=== PATIENT | female | born 1980 | race Caucasian/White ===

== ENCOUNTER 2018-01-12 18:19 | Emergency (ER) | payer OTHER ==
--- NOTE | 2018-01-12 18:46 | PDOC ---
History of Present Illness - General Stated Complaint: RASH Time Seen by Provider: 01/12/18 18:36 History Source: Patient Exam Limitations: No Limitations - History of Present Illness Initial Comments: 01/12/18 19:14 This 37 yr old with rash c/o scratching for the past few days Her daughter has the same complaints. Pt is seen by DIRECTOR NON PROFIT in triage and found to be suspcious for scabies. Pt treated and d/c'd from here Past History - Past Medical History Allergies/Adverse Reactions: Allergies Allergy/AdvReac Type Severity Reaction Status Date / Time zolpidem tartrate Allergy Severe Rash Verified 01/12/18 18:41 [From Ambien] Home Medications: Ambulatory Orders Permethrin 5% Topical Cream [Elimite -] 1 applic TP ONCE #1 tube 01/12/18 Asthma: No Cancer: No Cardiac Disorders: No Diabetes: No HTN: No Seizures: No Thyroid Disease: No - Reproductive History (#): 1 Para: 0 Cervical CA: No Dysfunctional Uterine Bleeding: No Ectopic : No Endometrial CA: No Polycystic Ovaries: No Therapeutic (s) & number: No Tubal Ligation: No Spontaneous : 0 - Suicide/Smoking/Psychosocial Hx Smoking Status: No Smoking History: Never smoked Have you smoked in the past 12 months: Yes Number of Cigarettes Smoked Daily: 5 Hx Alcohol Use: No Drug/Substance Use Hx: No Hx Substance Use Treatment: No Review of Systems - Review of Systems Able to Perform ROS?: Yes All Other Systems: Reviewed and Negative *Physical Exam - Physical Exam General Appearance: Yes: Appropriately Dressed HEENT: positive: Normal Voice Respiratory/Chest: positive: Lungs Clear Extremity: positive: Normal Inspection Integumentary: positive: Dry, Warm, Rash Neurologic: positive: Alert *DC/Admit/Observation/Transfer Diagnosis at time of Disposition: Scabies infestation - Discharge Dispostion Disposition: HOME Condition at time of disposition: Stable Admit: No - Prescriptions Prescriptions: Permethrin 5% Topical Cream [Elimite -] 1 applic TP ONCE #1 tube - Referrals Referrals: Aleksandr Callahan [Non Staff, Medical] - - Patient Instructions Printed Discharge Instructions: DI for Scabies Additional Instructions: Discharge instructions 1. use the lotion as directed, use it one day and put in each fold, and leave on 8 hours. Wash yourself and bedding immediately after 8 hours. 2. Reapply in 7 days 3. Follow up with Dr. Callahan - Post Discharge Activity
[2018-01-12 19:01] VITALS: BP 137/96; PULSE 75; TEMP 98.3; BMI 37.0
== END 2018-01-12 19:07 | disposition home or self-care (01) ==
LOC: JERFT 18:19
DX: B86 Scabies (principal)
CPT/HCPCS: 99281-25

== ENCOUNTER 2019-06-12 21:36 | Emergency (ER) | payer OTHER ==
[2019-06-12 22:04] VITALS: BP 132/67; PULSE 71; TEMP 97.9; BMI 38.2
== END 2019-06-13 00:30 | disposition left against medical advice (07) ==
LOC: JER 21:36
DX: Z53.21 Procedure and treatment not carried out due to patient leaving prior to being seen by health care provider (principal)
CPT/HCPCS: 99281-25

== ENCOUNTER 2019-06-24 11:46 | Emergency (ER) | payer OTHER ==
[2019-06-24 11:53] VITALS: BP 128/69; PULSE 67; TEMP 98.6; BMI 37.0
[2019-06-24 12:38] LABS: HYALINE CASTS 5 /lpf (0-8); URINE APPEARANCE CLEAR; URINE BACTERIA 4.6 /hpf (NEGATIVE); URINE BILIRUBIN NEGATIVE (NEGATIVE); URINE COLOR YELLOW; URINE GLUCOSE (UA) NEGATIVE (NEGATIVE); URINE KETONE NEGATIVE (NEGATIVE); URINE LEUK ESTERASE NEGATIVE (NEGATIVE); URINE NITRITE NEGATIVE (NEGATIVE); URINE PROTEIN NEGATIVE (NEGATIVE); URINE RBC 3 /hpf (0-4); URINE UROBILINOGEN 0.2 mg/dL (0.2-1.0); URINE WBC 0 /hpf (0-5)
--- NOTE | 2019-06-24 13:01 | PDOC ---
History of Present Illness - General Chief Complaint: Pain Stated Complaint: ABD PAIN Time Seen by Provider: 06/24/19 12:10 History Source: Patient Exam Limitations: No Limitations - History of Present Illness Initial Comments: 06/24/19 12:57 39 yo F w/ no sig PMhx comes in c/o 1 day of vaginal spotting with diffuse lower abdominal cramping. LMP May 20, she is usually regular, unsure if she is , (+)sexually active, does not use protection at all times, no vaginal discharge, no burning/pain on urination, no change in appetite, no known sick contacts, no recent travel, no fever/chillls, no NVD. Pt requesting a blood test, says that she has had a negative test in the past, with an ectopic . 06/24/19 12:58 06/24/19 13:01 Past History - Past Medical History Allergies/Adverse Reactions: Allergies Allergy/AdvReac Type Severity Reaction Status Date / Time zolpidem tartrate Allergy Severe Rash Verified 06/24/19 11:50 [From Vinayien] Home Medications: Ambulatory Orders Permethrin 5% Topical Cream [Elimite -] 1 applic TP ONCE #1 tube 01/12/18 Asthma: No Cancer: No Cardiac Disorders: No COPD: No DVT: No Diabetes: No HTN: No Seizures: No Thyroid Disease: No - Reproductive History Is Patient Now?: No (#): 1 Para: 0 Cervical CA: No Dysfunctional Uterine Bleeding: No Ectopic : No Endometrial CA: No Polycystic Ovaries: No Therapeutic (s) & number: No Tubal Ligation: No Spontaneous : 0 - Immunization History Immunization Up to Date: Yes - Suicide/Smoking/Psychosocial Hx Smoking Status: No Smoking History: Never smoked Have you smoked in the past 12 months: Yes Number of Cigarettes Smoked Daily: 5 Hx Alcohol Use: No Drug/Substance Use Hx: No Substance Use Type: None Hx Substance Use Treatment: No Review of Systems - Review of Systems Able to Perform ROS?: Yes Constitutional: No: Chills, Fever, Malaise, Night Sweats HEENTM: No: Eye Pain, Recent change in vision, Throat Pain Respiratory: No: Cough, Shortness of Breath Cardiac (ROS): No: Chest Pain, Palpitations, Chest Tightness ABD/GI: Yes: Abdominal cramping. No: Diarrhea, Nausea, Vomiting : No: Dysuria, Hematuria Musculoskeletal: No: Back Pain Integumentary: No: Rash Neurological: No: Headache, Numbness, Dizziness Psychiatric: No: Change in Appetite Endocrine: No: Unexplained Weight Loss *Physical Exam - Vital Signs Last Vital Signs Temp Pulse Resp BP Pulse Ox 98.6 F 67 18 128/69 100 06/24/19 11:48 06/24/19 11:48 06/24/19 11:48 06/24/19 11:48 06/24/19 11:48 - Physical Exam General Appearance: Yes: Nourished. No: Apparent Distress HEENT: positive: SULEIMAN, Normal ENT Inspection, Normal Voice. negative: Pale Conjunctivae, Scleral Icterus (R), Scleral Icterus (L) Neck: positive: Supple. negative: Decreased range of motion, Tender midline Respiratory/Chest: positive: Lungs Clear, Normal Breath Sounds. negative: Respiratory Distress, Accessory Muscle Use Cardiovascular: positive: Regular Rhythm, Regular Rate Female Pelvic Exam: positive: cervical os closed, normal adnexa, discharge ( mild whitish), uterus (non tender). negative: CMT, adnexal tenderness, vaginal bleeding Gastrointestinal/Abdominal: positive: Normal Bowel Sounds, Soft. negative: Tender Musculoskeletal: positive: Normal Inspection. negative: CVA Tenderness, Decreased Range of Motion Extremity: positive: Normal Capillary Refill, Normal Inspection, Normal Range of Motion. negative: Tender, Pedal Edema Integumentary: positive: Normal Color, Dry. negative: Jaundice, Rash Neurologic: positive: Fully Oriented, Alert, Normal Mood/Affect ED Treatment Course - ADDITIONAL ORDERS Additional order review: Laboratory Results 06/24/19 06/24/19 12:30 12:30 Urine Color Yellow Urine Appearance Clear Urine pH 5.0 D Ur Specific [place] 1.023 Urine Protein Negative Urine Glucose (UA) Negative Urine Ketones Negative Urine Blood 1+ H Urine Nitrite Negative Urine Bilirubin Negative Urine Urobilinogen 0.2 Ur Leukocyte Esterase Negative Urine WBC (Auto) 0 Urine RBC (Auto) 3 Urine Casts (Auto) 5 U Epithel Cells (Auto) 3.0 Urine Bacteria (Auto) 4.6 Urine HCG, Qual Negative Medical Decision Making - Medical Decision Making 06/24/19 13:00 39 yo F w/ vaginal spotting. Menstruation is late. Pt is requesting a blood test. Pelvic exam unremarkable, no bleeding noted. Abdomen soft, NT WIll check UA, UCG. If UCG negative, will check a blood beta HCG. 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 Return for worsening/concerning symptoms Pt verbalizes understanding and agrees with plan *DC/Admit/Observation/Transfer Diagnosis at time of Disposition: Irregular menstrual bleeding - Discharge Dispostion Disposition: HOME Condition at time of disposition: Stable - Referrals - Patient Instructions Additional Instructions: Return for worsening/concerning symptoms. Your test is negative. Please make sure that you follow up with your OBGYN. - Post Discharge Activity
--- NOTE | 2019-06-24 16:02 | PDOC ---
*Physical Exam - Vital Signs Last Vital Signs Temp Pulse Resp BP Pulse Ox 98.6 F 67 18 128/69 100 06/24/19 11:48 06/24/19 11:48 06/24/19 11:48 06/24/19 11:48 06/24/19 11:48 ED Treatment Course - ADDITIONAL ORDERS Additional order review: Laboratory Results 06/24/19 06/24/19 06/24/19 14:00 12:30 12:30 Beta HCG, Quant < 1.0 Urine Color Yellow Urine Appearance Clear Urine pH 5.0 D Ur Specific [place] 1.023 Urine Protein Negative Urine Glucose (UA) Negative Urine Ketones Negative Urine Blood 1+ H Urine Nitrite Negative Urine Bilirubin Negative Urine Urobilinogen 0.2 Ur Leukocyte Esterase Negative Urine WBC (Auto) 0 Urine RBC (Auto) 3 Urine Casts (Auto) 5 U Epithel Cells (Auto) 3.0 Urine Bacteria (Auto) 4.6 Urine HCG, Qual Negative Medical Decision Making - Medical Decision Making 06/24/19 16:02 The patient was seen and evaluated in conjunction with GALI Rodrigez under my direct supervision, ancillary studies were reviewed. I independently interviewed and evaluated the patient and I agree with the plan as outlined by GALI Rodrigez. Pt left ED without appropriate discharge because she had to leave. Pt was only waiting on a beta hcg result for discharge. Pt's beta hcg is negative, PT identified herself on the phone with her full name and date of and with the information that she was waiting on a test for final discharge. Pt was appreciative of the information and call was ended. *DC/Admit/Observation/Transfer Diagnosis at time of Disposition: Irregular menstrual bleeding - Discharge Dispostion Disposition: HOME Condition at time of disposition: Stable - Referrals - Patient Instructions Additional Instructions: Return for worsening/concerning symptoms. Your test is negative. Please make sure that you follow up with your OBGYN. - Post Discharge Activity
== END 2019-06-24 16:31 | disposition home or self-care (01) ==
LOC: JER 11:46
DX: N92.5 Other specified irregular menstruation (principal); Z32.02 Encounter for pregnancy test, result negative
CPT/HCPCS: 36415; 81003; 84702; 84703; 87086; 87491; 87591; 99283-25

== ENCOUNTER 2020-02-11 10:18 | Emergency (ER) | payer OTHER ==
[2020-02-11 10:28] VITALS: BP 115/96; PULSE 82; TEMP 101.2
[2020-02-11] MEDS ORDERED: ACETAMINOPHEN 325 MG TABLET (FP) PO ONE (10:30)
== END 2020-02-11 10:35 | disposition home or self-care (01) ==
LOC: MERGE 10:18 → JER 10:18
DX: O26.891 Other specified pregnancy related conditions, first trimester (principal); R50.9 Fever, unspecified; R51 Headache; M79.10 Myalgia, unspecified site; Z3A.01 Less than 8 weeks gestation of pregnancy
CPT/HCPCS: 99282-25

== ENCOUNTER 2020-09-16 04:40 | Day surgery (SDC) | payer OTHER ==
[2020-09-13 10:23] VITALS: BMI 36.3
[2020-09-16] MEDS ORDERED: MIDAZOLAM HCL 2 MG/2 ML SINGLE DOSE VIAL ONE ×2 (18:30)
[2020-09-16 19:11] VITALS: TEMP 97.7
[2020-09-16 19:59] VITALS: BP 113/74; PULSE 61
== END 2020-09-16 19:50 | disposition home or self-care (01) ==
LOC: JASU-SURG 04:40 → MERGE 04:40 → JASU-SURG 19:50
PROVIDERS: ATTEND Urology
PROC: 0TF4XZZ Fragmentation in Left Kidney Pelvis, External Approach (ICD-10-PCS; principal; 2020-09-16 15:30)
DX: N20.0 Calculus of kidney (principal)
CPT/HCPCS: 81025

== ENCOUNTER 2020-10-29 10:09 | Emergency (ER) | payer OTHER ==
[2020-10-29 10:23] VITALS: PULSE 76; BMI 37.8
[2020-10-29 12:18] LABS: BASO % 0.6 % (0-2.0); EOS % 0.8 % (0-4.5); HEMATOCRIT 38.8 % (32.4-45.2); HEMOGLOBIN 13.2 GM/dL (10.7-15.3); LYMPH % 24.7 % (8-40); MCH 32.1 pg (25.7-33.7); MCHC 33.9 g/dl (32.0-36.0); MEAN CELL VOLUME 94.8 fl (80-96); MEAN PLT VOLUME 7.8 fl (7.5-11.1); MONO % 9.1 % (3.8-10.2); NEUT % 64.8 % (42.8-82.8); PLATELET COUNT 319 K/MM3 (134-434); RDW 12.5 % (11.6-15.6); WHITE BLOOD COUNT 10.6 K/mm3 (4.0-10.0)
[2020-10-29 12:34] LABS: POTASSIUM 4.4 mmol/L (3.5-5.1)
[2020-10-29 12:36] LABS: ALBUMIN 3.9 g/dl (3.4-5.0); BLOOD UREA NITROGEN 9.3 mg/dL (7-18)
[2020-10-29 12:39] LABS: CREATININE 0.7 mg/dL (0.55-1.3)
[2020-10-29 12:41] LABS: BILIRUBIN,TOTAL 0.6 mg/dL (0.2-1); TOT PROT 7.7 g/dl (6.4-8.2)
[2020-10-29] MEDS ORDERED: SODIUM CHLORIDE 0.9% 500 ML INFUS.BAG IV ONE (12:51)
[2020-10-29 13:59] VITALS: BP 120/72; TEMP 98.1
== END 2020-10-29 13:59 | disposition home or self-care (01) ==
LOC: JER 10:09
DX: B34.9 Viral infection, unspecified (principal)
CPT/HCPCS: 36415; 80053; 84703; 85025; 87804; 99284-25; C9803; U0003

== ENCOUNTER 2021-01-06 04:31 | Day surgery (SDC) | payer OTHER ==
[2021-01-20 12:22] VITALS: BMI 36.5
[2021-01-20] MEDS ORDERED: ONDANSETRON 4 MG/2 ML VIAL IVPUSH PRN (15:47)
[2021-01-20] MEDS ORDERED: oxyCODONE HCL 5 MG TABLET PO PRN (15:47)
[2021-01-20] MEDS ORDERED: LACTATED RINGERS SOLUTION 1,000 ML IV SCH (16:00)
[2021-01-20 17:00] VITALS: BP 108/67; PULSE 69; TEMP 98
== END 2021-01-20 17:10 | disposition home or self-care (01) ==
LOC: JASU-SURG 04:31
PROVIDERS: ATTEND Urology
DX: Z53.8 Procedure and treatment not carried out for other reasons (principal)
CPT/HCPCS: 81025

== ENCOUNTER → 2021-01-20 | Day surgery (SDC) | payer OTHER ==
[2021-01-17 14:27] VITALS: BMI 36.1
[~2021-01-20] MED LIST: KETOROLAC TROMETHAMINE 30 MG/1 ML VIAL ONE; MIDAZOLAM HCL 2 MG/2 ML SINGLE DOSE VIAL ONE; PROPOFOL 20 ML ONE
== END | disposition home or self-care (01) ==
LOC: JASU-SURG 05:33
PROVIDERS: ATTEND Urology
PROC: 0TF3XZZ Fragmentation in Right Kidney Pelvis, External Approach (ICD-10-PCS; principal; 2021-01-20)
DX: N20.0 Calculus of kidney (principal)

== ENCOUNTER 2021-03-16 20:21 | Inpatient (IN) | payer OTHER ==
[2021-03-16] MEDS ORDERED: morphine CARPU-JECT 2 MG/1 ML DISP.SYRIN IVPUSH ONE (21:00)
[2021-03-16 21:34] LABS: BASO % 0.6 % (0-2.0); EOS % 1.4 % (0-4.5); HEMATOCRIT 26.2 % (32.4-45.2); HEMOGLOBIN 8.9 GM/dL (10.7-15.3); LYMPH % 15.4 % (8-40); MCH 33.2 pg (25.7-33.7); MCHC 33.8 g/dl (32.0-36.0); MEAN CELL VOLUME 98.5 fl (80-96); MEAN PLT VOLUME 6.8 fl (7.5-11.1); MONO % 6.6 % (3.8-10.2); PH,URINE 5.5 (5.0-8.0); PLATELET COUNT 675 K/MM3 (134-434); RBC 2.66 M/mm3 (3.60-5.2); RDW 16.1 % (11.6-15.6); URINE APPEARANCE CLEAR; URINE BILIRUBIN NEGATIVE (NEGATIVE); URINE COLOR YELLOW; URINE GLUCOSE (UA) NEGATIVE (NEGATIVE); URINE KETONE NEGATIVE (NEGATIVE); URINE LEUK ESTERASE NEGATIVE (NEGATIVE); URINE NITRITE NEGATIVE (NEGATIVE); URINE PROTEIN NEGATIVE (NEGATIVE); URINE UROBILINOGEN 0.2 mg/dL (0.2-1.0); WHITE BLOOD COUNT 14.1 K/mm3 (4.0-10.0)
[2021-03-16 22:02] LABS: ALBUMIN 3.6 g/dl (3.4-5.0); BLOOD UREA NITROGEN 4.4 mg/dL (7-18); CALCIUM 8.5 mg/dL (8.5-10.1)
[2021-03-16 22:06] LABS: CREATININE 0.4 mg/dL (0.55-1.3)
[2021-03-16 22:08] LABS: ANISOCYTOSIS 1+; BILIRUBIN,TOTAL 0.7 mg/dL (0.2-1); PLATELET ESTIMATE INCREASED; TOT PROT 7.4 g/dl (6.4-8.2)
[2021-03-16] MEDS ORDERED: morphine CARPU-JECT 4 MG/1 ML DISP.SYRIN IVPUSH ONE (23:57)
[2021-03-17 07:02] LABS: BASO % 0.2 % (0-2.0); HEMATOCRIT 21.8 % (32.4-45.2); HEMOGLOBIN 7.6 GM/dL (10.7-15.3); LYMPH % 19.3 % (8-40); MCH 34.3 pg (25.7-33.7); MCHC 34.8 g/dl (32.0-36.0); MEAN CELL VOLUME 98.6 fl (80-96); MEAN PLT VOLUME 6.6 fl (7.5-11.1); MONO % 9.9 % (3.8-10.2); NEUT % 67.6 % (42.8-82.8); PLATELET COUNT 519 K/MM3 (134-434); RBC 2.21 M/mm3 (3.60-5.2); RDW 16.1 % (11.6-15.6); WHITE BLOOD COUNT 10.9 K/mm3 (4.0-10.0)
[2021-03-17 07:55] LABS: BLOOD UREA NITROGEN 6.8 mg/dL (7-18); MAGNESIUM 2.1 mg/dL (1.8-2.4)
[2021-03-17 07:59] LABS: CREATININE 0.4 mg/dL (0.55-1.3)
[2021-03-17 08:00] LABS: BILIRUBIN,TOTAL 0.7 mg/dL (0.2-1)
[2021-03-17 08:02] LABS: TOT PROT 5.6 g/dl (6.4-8.2)
[2021-03-17 08:32] LABS: ALBUMIN 2.8 g/dl (3.4-5.0)
[2021-03-17] MEDS: DOCUSATE SODIUM 100 MG CAPSULE (FP) PO SCH ×3 (09:49→21:18)
[2021-03-17] MEDS: oxyCODONE HCL 5 MG TABLET PO PRN ×3 (10:15→23:04)
[2021-03-17 11:36] VITALS: BMI 35.5
[2021-03-17 13:06] LABS: METHADONE, UR NEGATIVE ng/ml (CUTOFF=300); PHENCYCLIDINE,URINE NEGATIVE ng/ml (CUTOFF=25); URINE AMPHETAMINES NEGATIVE ng/ml (CUTOFF=500); URINE BARBITURATES NEGATIVE ng/ml (CUTOFF=200); URINE BENZODIAZEPINES NEGATIVE ng/ml (CUTOFF=200)
[2021-03-17 13:11] LABS: COCAINE, UR POSITIVE ng/ml (CUTOFF=300); OPIATES, URI POSITIVE ng/ml (CUTOFF=300)
[2021-03-17 16:21] LABS: INR 1.09 (0.83-1.09); PROTHROMBIN TIME (PATIENT) 13.2 SEC (9.7-13.0)
[2021-03-17 16:24] LABS: ACTIVATED PTT 25.9 SECONDS (25.2-36.5)
[2021-03-18 07:27] LABS: BASO % 0.2 % (0-2.0); EOS % 3.1 % (0-4.5); HEMOGLOBIN 7.7 GM/dL (10.7-15.3); LYMPH % 26.3 % (8-40); MCH 33.8 pg (25.7-33.7); MCHC 33.4 g/dl (32.0-36.0); MEAN CELL VOLUME 101.3 fl (80-96); MONO % 11.2 % (3.8-10.2); NEUT % 59.2 % (42.8-82.8); PLATELET COUNT 457 K/MM3 (134-434); RBC 2.27 M/mm3 (3.60-5.2); RDW 16.4 % (11.6-15.6); WHITE BLOOD COUNT 7.3 K/mm3 (4.0-10.0)
[2021-03-18 07:53] LABS: ALBUMIN 2.6 g/dl (3.4-5.0); BLOOD UREA NITROGEN 10.7 mg/dL (7-18); CALCIUM 7.7 mg/dL (8.5-10.1); MAGNESIUM 1.9 mg/dL (1.8-2.4)
[2021-03-18 07:56] LABS: CREATININE 0.4 mg/dL (0.55-1.3); PHOSPHOROUS 3.9 mg/dL (2.5-4.9)
[2021-03-18 07:57] LABS: BILIRUBIN,TOTAL 0.6 mg/dL (0.2-1)
[2021-03-18 07:59] LABS: TOT PROT 5.6 g/dl (6.4-8.2)
[2021-03-18] MEDS: oxyCODONE HCL 5 MG TABLET PO PRN (08:33)
[2021-03-18] MEDS: DOCUSATE SODIUM 100 MG CAPSULE (FP) PO SCH (11:23)
[2021-03-18 14:05] VITALS: BP 102/57; PULSE 75; TEMP 98.4
== END 2021-03-18 17:28 | disposition home or self-care (01) | DRG 663 ==
LOC: JER 20:21 → JERBED 03-17 01:34 → J7W 03-17 06:45
PROVIDERS: ADMIT Hospitalist; ATTEND Internal Medicine
DX: D64.9 Anemia, unspecified (principal); F17.210 Nicotine dependence, cigarettes, uncomplicated; R10.9 Unspecified abdominal pain; R58 Hemorrhage, not elsewhere classified; D72.829 Elevated white blood cell count, unspecified; R60.9 Edema, unspecified; F10.10 Alcohol abuse, uncomplicated; F14.10 Cocaine abuse, uncomplicated; E66.9 Obesity, unspecified; Z68.35 Body mass index [BMI] 35.0-35.9, adult; R74.01 Elevation of levels of liver transaminase levels
CPT/HCPCS: 36415; 74177-TC; 80053; 80307; 81003; 82272; 82607; 82728; 82746; 83010; 83540; 83550; 83615; 83735; 84100; 84703; 85025; 85045; 85379; 85384; 85610; 85730; 87040; 93005; 93010; 93970-TC; 99285-25; C9803; Q9967; U0003; U0005

== ENCOUNTER 2021-10-31 16:04 | Emergency (ER) | payer OTHER ==
[2021-10-31 17:04] VITALS: BP 136/67; PULSE 67; TEMP 98.7; BMI 35.2
== END 2021-10-31 17:23 | disposition home or self-care (01) ==
LOC: JERFT 16:04
DX: H60.502 Unspecified acute noninfective otitis externa, left ear (principal)
CPT/HCPCS: 99283-25

== ENCOUNTER 2022-07-08 09:11 | Emergency (ER) | payer OTHER ==
[2022-07-08 09:28] VITALS: BP 118/78; PULSE 62; RESP 18; TEMP 98.8; BMI 36.3
[2022-07-08] MEDS ORDERED: KETOROLAC TROMETHAMINE 30 MG/1 ML VIAL IVPB ONE (09:59)
[2022-07-08] MEDS ORDERED: SODIUM CHLORIDE 0.9% 500 ML INFUS.BAG IV ONE (09:59)
[2022-07-08] MEDS ORDERED: KETOROLAC TROMETHAMINE 30 MG/1 ML VIAL ONE (10:09)
[2022-07-08 10:11] LABS: PH,URINE 5.5 (5.0-8.0); URINE APPEARANCE CLEAR; URINE BILIRUBIN NEGATIVE (NEGATIVE); URINE COLOR YELLOW; URINE GLUCOSE (UA) NEGATIVE (NEGATIVE); URINE KETONE NEGATIVE (NEGATIVE); URINE LEUK ESTERASE NEGATIVE (NEGATIVE); URINE NITRITE NEGATIVE (NEGATIVE); URINE PROTEIN NEGATIVE (NEGATIVE); URINE UROBILINOGEN 0.2 mg/dL (0.2-1.0)
[2022-07-08 10:15] LABS: HCG,QUALITATIVE URINE Negative
[2022-07-08 10:37] LABS: BASO % 0.6 % (0-2.0); EOS % 0.6 % (0-4.5); HEMATOCRIT 37.8 % (32.4-45.2); HEMOGLOBIN 13.1 GM/dL (10.7-15.3); LYMPH % 23.7 % (8-40); MCH 32.4 pg (25.7-33.7); MCHC 34.7 g/dl (32.0-36.0); MEAN CELL VOLUME 93.4 fl (80-96); MEAN PLT VOLUME 7.4 fl (7.5-11.1); MONO % 9.3 % (3.8-10.2); NEUT % 65.8 % (42.8-82.8); PLATELET COUNT 345 10^3/uL (134-434); RBC 4.05 M/mm3 (3.60-5.2); RDW 12.5 % (11.6-15.6); WHITE BLOOD COUNT 10.1 K/mm3 (4.0-10.0)
[2022-07-08 11:04] LABS: CALCIUM 9.4 mg/dL (8.5-10.1)
[2022-07-08 11:05] LABS: ALBUMIN 3.7 g/dl (3.4-5.0); BLOOD UREA NITROGEN 8.8 mg/dL (7-18)
[2022-07-08 11:08] LABS: CREATININE 0.6 mg/dL (0.55-1.3)
[2022-07-08 11:10] LABS: BILIRUBIN,TOTAL 0.7 mg/dL (0.2-1); TOT PROT 7.6 g/dl (6.4-8.2)
== END 2022-07-08 14:54 | disposition left against medical advice (07) ==
LOC: JER 09:11
PROC: 3E0333Z Introduction of Anti-inflammatory into Peripheral Vein, Percutaneous Approach (ICD-10-PCS; principal; 2022-07-08)
DX: R10.9 Unspecified abdominal pain (principal)
CPT/HCPCS: 36415; 74176-TC; 80053; 81003; 84703; 85025; 87086; 99284-25

== ENCOUNTER 2022-10-18 01:43 | Emergency (ER) | payer OTHER ==
[2022-10-18 01:59] VITALS: BP 143/90; PULSE 81; RESP 18; TEMP 98.1; BMI 36.3
[2022-10-18] MEDS ORDERED: DIPHTH,PERTUSS(ACELL),TET 0.5 ML DISP.SYRIN IM ONE (04:35)
== END 2022-10-18 06:02 | disposition left against medical advice (07) ==
LOC: JER 01:43
PROC: 0HQFXZZ Repair Right Hand Skin, External Approach (ICD-10-PCS; principal; 2022-10-18)
DX: S61.212A Laceration without foreign body of right middle finger without damage to nail, initial encounter (principal); W26.0XXA Contact with knife, initial encounter
CPT/HCPCS: 99282-25

== ENCOUNTER 2022-10-27 12:47 | Emergency (ER) | payer OTHER ==
[2022-10-27 13:22] VITALS: BP 134/71; PULSE 68; RESP 18; TEMP 97.8; BMI 36.5
== END 2022-10-27 14:04 | disposition home or self-care (01) ==
LOC: JERFT 12:47
DX: S61.212A Laceration without foreign body of right middle finger without damage to nail, initial encounter (principal); W26.0XXA Contact with knife, initial encounter; Z48.00 Encounter for change or removal of nonsurgical wound dressing
CPT/HCPCS: 99281-25

== ENCOUNTER 2023-08-08 07:57 | Emergency (ER) | payer OTHER ==
[2023-08-08 08:05] VITALS: BP 117/73; PULSE 67; RESP 18; TEMP 99.3; BMI 36.1
== END 2023-08-08 09:05 | disposition home or self-care (01) ==
LOC: JER 07:57
DX: R51.9 Headache, unspecified (principal)
CPT/HCPCS: 93005; 93010; 99283-25

== ENCOUNTER 2024-02-19 12:46 | Emergency (ER) | payer OTHER ==
[2024-02-19 12:53] VITALS: BP 123/74; PULSE 72; RESP 18; TEMP 98.6; BMI 37.3
== END 2024-02-19 14:57 | disposition home or self-care (01) ==
LOC: JER 12:46
DX: R07.89 Other chest pain (principal); R05.9 Cough, unspecified; R09.89 Other specified symptoms and signs involving the circulatory and respiratory systems; R50.9 Fever, unspecified; R52 Pain, unspecified; J10.1 Influenza due to other identified influenza virus with other respiratory manifestations; J40 Bronchitis, not specified as acute or chronic; Z20.822 Contact with and (suspected) exposure to COVID-19
CPT/HCPCS: 0241U-QW; 71046-TC-FY; 93005; 93010; 99285-25

== ENCOUNTER 2024-05-11 16:41 | Emergency (ER) | payer OTHER ==
[2024-05-11 16:50] VITALS: BP 130/78; PULSE 72; RESP 18; TEMP 98.5; BMI 35.7
[2024-05-11] MEDS ORDERED: ACETAMINOPHEN INJECTION 100 ML IVPB ONE (17:53)
[2024-05-11] MEDS ORDERED: METOCLOPRAMIDE HCL INJECTION 10 MG/2 ML VIAL ONE (17:53)
[2024-05-11] MEDS: METOCLOPRAMIDE HCL INJECTION 10 MG/2 ML VIAL IVPUSH ONE (18:17)
[2024-05-11] MEDS: ACETAMINOPHEN 1000 MG/100 ML BAG IVPB ONE (18:17)
[2024-05-11] MEDS: SODIUM CHLORIDE 0.9% 500 ML INFUS.BAG IV ONE (18:17)
[2024-05-11 18:34] LABS: BASO % 0.3 % (0-2.0); EOS % 0.9 % (0-4.5); HEMATOCRIT 38.6 % (32.4-45.2); HEMOGLOBIN 13.2 GM/dL (10.7-15.3); LYMPH % 24.7 % (8-40); MCH 31.6 pg (25.7-33.7); MCHC 34.2 g/dl (32.0-36.0); MEAN CELL VOLUME 92.3 fl (80-96); MEAN PLT VOLUME 7.5 fl (7.5-11.1); MONO % 8.5 % (3.8-10.2); NEUT % 65.6 % (42.8-82.8); PLATELET COUNT 387 10^3/uL (134-434); RBC 4.19 M/mm3 (3.60-5.2); WHITE BLOOD COUNT 10.7 K/mm3 (4.0-10.0)
[2024-05-11 18:54] LABS: POTASSIUM 4.4 mmol/L (3.5-5.1)
[2024-05-11 18:57] LABS: BLOOD UREA NITROGEN 8.6 mg/dL (7-18); CALCIUM 9.2 mg/dL (8.5-10.1); MAGNESIUM 2.2 mg/dL (1.8-2.4)
[2024-05-11 18:58] LABS: ALBUMIN 3.8 g/dl (3.4-5.0)
[2024-05-11 19:01] LABS: BILIRUBIN,TOTAL 0.3 mg/dL (0.2-1); CREATININE 0.7 mg/dL (0.55-1.3); TOT PROT 7.4 g/dl (6.4-8.2)
== END 2024-05-11 20:52 | disposition home or self-care (01) ==
LOC: JER 16:41
PROC: 3E033GC Introduction of Other Therapeutic Substance into Peripheral Vein, Percutaneous Approach (ICD-10-PCS; principal; 2024-05-11)
PROC: 3E033NZ Introduction of Analgesics, Hypnotics, Sedatives into Peripheral Vein, Percutaneous Approach (ICD-10-PCS; 2024-05-11)
DX: J32.9 Chronic sinusitis, unspecified (principal); R51.9 Headache, unspecified; R07.89 Other chest pain; Z87.891 Personal history of nicotine dependence; Z20.822 Contact with and (suspected) exposure to COVID-19
CPT/HCPCS: 0241U-QW; 36415; 71046-TC-FY; 80053; 83735; 84484; 84703; 85025; 93005; 93010; 99285-25; J0131

== ENCOUNTER 2024-05-29 09:16 | Emergency (ER) | payer OTHER ==
[2024-05-29 09:24] VITALS: BP 127/78; PULSE 70; RESP 18; TEMP 98.9; BMI 36.1
[2024-05-29 10:08] LABS: EPI CELLS 14 /uL (0-25.1); HYALINE CASTS 0 /uL (0-3.1); URINE APPEARANCE CLEAR; URINE BACTERIA 103 /uL (0-1359); URINE BILIRUBIN NEGATIVE (NEGATIVE); URINE COLOR YELLOW; URINE GLUCOSE (UA) NEGATIVE (NEGATIVE); URINE KETONE NEGATIVE (NEGATIVE); URINE LEUK ESTERASE NEGATIVE (NEGATIVE); URINE NITRITE NEGATIVE (NEGATIVE); URINE PROTEIN NEGATIVE (NEGATIVE); URINE RBC 47 /uL (0-23.9); URINE UROBILINOGEN 0.2 mg/dL (0.2-1.0); URINE WBC 8 /uL (0-25.8)
[2024-05-29 10:09] LABS: HCG,QUALITATIVE URINE Negative
[2024-05-29 11:03] LABS: BASO % 0.5 % (0-2.0); EOS % 1.2 % (0-4.5); HEMATOCRIT 36.4 % (32.4-45.2); HEMOGLOBIN 12.2 GM/dL (10.7-15.3); LYMPH % 31.3 % (8-40); MCH 31.2 pg (25.7-33.7); MCHC 33.5 g/dl (32.0-36.0); MEAN PLT VOLUME 7.3 fl (7.5-11.1); MONO % 10.5 % (3.8-10.2); NEUT % 56.5 % (42.8-82.8); PLATELET COUNT 333 10^3/uL (134-434); RBC 3.92 M/mm3 (3.60-5.2); RDW 12.7 % (11.6-15.6); WHITE BLOOD COUNT 6.4 K/mm3 (4.0-10.0)
[2024-05-29 11:07] LABS: INR 1.1 (0.83-1.09); PROTHROMBIN TIME (PATIENT) 12.4 SEC (9.7-13.0)
[2024-05-29 11:24] LABS: POTASSIUM 4.3 mmol/L (3.5-5.1)
[2024-05-29 11:30] LABS: CALCIUM 8.7 mg/dL (8.5-10.1)
[2024-05-29 11:31] LABS: ALBUMIN 3.5 g/dl (3.4-5.0); BLOOD UREA NITROGEN 7.4 mg/dL (7-18)
[2024-05-29 11:34] LABS: BILIRUBIN,TOTAL 0.8 mg/dL (0.2-1); CREATININE 0.6 mg/dL (0.55-1.3); TOT PROT 7.1 g/dl (6.4-8.2)
== END 2024-05-29 13:49 | disposition home or self-care (01) ==
LOC: JER 09:16
DX: N93.9 Abnormal uterine and vaginal bleeding, unspecified (principal); R10.2 Pelvic and perineal pain
CPT/HCPCS: 36415; 76830-TC; 80053; 81003; 84703; 85025; 85610; 85730; 87491; 87591; 87661; 99284-25